=== PATIENT | female | born 2000 | race African-American/Black ===

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

== ENCOUNTER 2019-07-10 13:22 | Emergency (ER) | payer OTHER, MEDICAID ==
--- NOTE | 2019-07-10 15:32 | RAD ---
XR Chest Pa Lat STANDARD History: Chest pain Comparison: Radiograph November 2017 Findings: Lungs are clear. No pneumothorax or effusion. Cardiac silhouette and mediastinal contours a re within normal limits. Impression: No acute intrathoracic abnormality.
== END 2019-07-10 16:00 | disposition home or self-care (01) ==
LOC: ERS 13:22
DX: J06.9 Acute upper respiratory infection, unspecified (principal)
CPT/HCPCS: 71046; 87804; 93005

== ENCOUNTER 2019-12-31 17:36 | Emergency (ER) | payer MEDICAID, OTHER ==
[2019-12-31] MEDS ORDERED: Diazepam 5 MG TAB ONE (18:03)
[2019-12-31] MEDS ORDERED: HYDROcodone/Acetaminophen 5/325 mg Tablet ONE (18:03)
[2019-12-31 18:33] LABS: Bilirubin Negative (Negative); Blood, Urine Negative (Negative); Clarity Clear (Clear); Glucose, Urine (Dipstick) Normal (Negative); Leukocyte Negative Leu/uL (Negative); Nitrite Negative (Negative); Protein, Urine (Dipstick) Negative (Neg-Trace); Urobilinogen Normal mg/dL (Less than 2)
[2019-12-31 18:35] LABS: Pregnancy Test - Urine (BHCG) Negative (Negative); Pregu Control Background? CLEAR/WHITE (CLR/WHITE); Pregu Control Bar Appear? YES (CONTROL BAR); Specific Gravity 1.012 (1.002-1.036)
--- NOTE | 2019-12-31 19:07 | CT ---
CT Thoracic Spine WO Con History: Back pain Comparison: None. Findings: No acute fracture or malalignment of the thoracic spine. No subluxation. Posterior ribs are intact. Lung parenchyma is clear. The neural foramina are patent. Paraspinal soft tissues are unremarkable. Transverse processes are in tact. Spinous processes are intact. Impression: 1. No acute thoracic spine abnormality. Patent neural foramina. Small degenerative calcification of t he right T12/L1 facet joint. 2. Low-grade S-shaped scoliosis thoracolumbar spine on the tomographic image.
--- NOTE | 2019-12-31 19:09 | CT ---
CT Lumbar Spine WO Con History: Pain Comparison: None. Findings: Paraspinal soft tissues are unremarkable. No acute fracture or malalignment of the lumbar s pine. Low-grade S-shaped scoliosis on the instructor of sociology tomographic image. SI joints are intact. Transverse processes are intact. Spinous processes are intact. No subluxation. No pars interarticularis defects. Small disc bulge at L3/L4 and L4/L5 without significant neural foraminal or spinal canal narrowing. Impression: No acute abnormality of the lumbar spine.
== END 2019-12-31 19:39 | disposition home or self-care (01) ==
LOC: ERS 17:36
DX: M54.15 Radiculopathy, thoracolumbar region (principal)
CPT/HCPCS: 72128; 72131; 81003; 81025

== ENCOUNTER 2021-03-29 23:11 | Emergency (ER) | payer OTHER ==
[2021-03-30 00:25] LABS: #Basophils 0.1 thou/uL (0.0-0.2); #Eosinphils 0.2 thou/uL (0.0-0.7); #Lymphocytes 1.6 thou/uL (1.20-3.40); #Monocytes 0.3 thou/uL (0.11-0.59); #Neutrophils 1.5 thou/uL (1.40-6.50); %Basophils 2.2 % (0.0-1.0); %Eosinophils 4.8 % (0.0-10.0); %Lymphocytes 45.1 % (21.0-51.0); %Monocytes 7.3 % (0.0-10.0); %Neutrophils 40.7 % (42.0-75.0); Hemoglobin 15.5 g/dL (12.0-16.0); Mean Corpuscular HGB CONC 33.6 g/dL (32.0-36.0); Mean Corpuscular Hemoglobin 28.6 pg (27.0-31.0); Mean Platelet Volume 10.8 fL (7.4-10.4); Platelet Count 138 thou/uL (130-400); RBC Distribution Width 11.9 % (11.5-14.5); Red Blood Cell (RBC) Count 5.44 mill/uL (4.20-5.40); White Blood Cell (WBC) Count 3.6 thou/uL (4.8-10.8)
[2021-03-30 00:40] LABS: ALT (SGPT) 25 U/L (8-55); AST (SGOT) 50 U/L (5-34); Albumin 4.6 g/dL (3.5-5.0); Alkaline Phosphatase 52 U/L (40-110); Anion Gap 15 mmol/L (10-20); BUN (Urea Nitrogen) 13 mg/dL (7.0-18.7); Bilirubin, Total 0.3 mg/dL (0.2-1.2); Calc. Creatinine Clearance 0 mL/min (70-130); Calcium 9.6 mg/dL (7.8-10.44); Carbon Dioxide 20 mmol/L (22-29); Chloride 102 mmol/L (98-107); Glucose 130 mg/dL (70-105); Potassium 3.5 mmol/L (3.5-5.1); Protein, Total 8.6 g/dL (6.0-8.3); Sodium 133 mmol/L (136-145)
== END 2021-03-30 00:48 | disposition home or self-care (01) ==
LOC: ERS 23:11
DX: L02.01 Cutaneous abscess of face (principal); R00.0 Tachycardia, unspecified; Z79.899 Other long term (current) drug therapy
CPT/HCPCS: 36415; 80053; 85025; 93005

== ENCOUNTER 2022-09-27 22:42 | Emergency (ER) | payer OTHER ==
[2022-09-27] MEDS ORDERED: Ibuprofen 200 MG TAB ONE (23:20)
[2022-09-27 23:39] LABS: SARS-CoV-2 NAA Rapid Test Not Detected (NotDetected)
== END 2022-09-28 00:31 | disposition home or self-care (01) ==
LOC: ERS 22:42
DX: J11.1 Influenza due to unidentified influenza virus with other respiratory manifestations (principal); Z20.822 Contact with and (suspected) exposure to COVID-19
CPT/HCPCS: 87081; 87430; 99283